=== PATIENT | male | born 1965 | race African-American/Black ===

== ENCOUNTER 2020-11-28 11:43 | Inpatient (IN) | payer OTHER ==
[~2020-11-28] VITALS: Ht 167.6 cm; Wt 58.0 kg
[2020-11-28 12:53] LABS: Basophils # (auto) 0 10 ^3/uL (0-0.2); Basophils % (auto) 0.9 % (0.0-2.0); Eosinophils # (auto) 0.1 10 ^3/uL (0-0.8); Hemoglobin 15.5 g/dL (13.5-17.5); Lymphocytes % (auto) 17.9 % (10.0-50.0); Mean Corpuscular Hgb Conc. 33.6 g/dL (32.0-36.0); Mean Corpuscular Volume 95.1 fL (80.0-100.0); Monocytes # (auto) 0.6 10 ^3/uL (0-1.3); Monocytes % (auto) 10.2 % (0.0-12.0); Neutrophils # (auto) 3.8 10 ^3/uL (1.6-8.6); Red Blood Cells 4.84 10^6/uL (4.5-5.90); Red Cell Distribution Width 12.7 % (11.8-14.3); White Blood Cell 5.5 10^3/uL (4.4-10.8)
[2020-11-28 13:12] LABS: Anion Gap 5 (5-15); Blood Urea Nitrogen 8 mg/dL (7-18); Calcium 8.7 mg/dL (8.5-10.1); Carbon Dioxide 26 mmol/L (21-32); Chloride 109 mmol/L (98-107); Glucose 100 mg/dL (74-106); Potassium 4.6 mmol/L (3.5-5.1); Sodium 140 mmol/L (136-145)
[2020-11-28 13:17] LABS: Alanine Aminotransferase 19 U/L (16-61); Alkaline Phosphatase 64 U/L (45-117); Aspartate Aminotransferase 23 U/L (15-37); Bilirubin, Total 0.7 mg/dL (0.2-1.0); GFR African American 84 mL/min; GFR Non-African American 70 mL/min; Total Protein 7.1 g/dL (6.4-8.2)
[2020-11-28] MEDS ORDERED: ACETAMINOPHEN 325 MG TAB PO ONE (13:45)
[2020-11-28] MEDS ORDERED: cloNIDine HCL 0.1 MG TAB PO ONE (13:45)
[2020-11-28 14:46] LABS: INR 1.12 (0.9-1.15); Partial Thromboplastin Time 29.1 sec (23.0-31.2)
[2020-11-28] MEDS ORDERED: MORPHINE SULF INJ 2 MG/ML SYRINGE 1ML IV PRN ×2 (18:00→19:15)
[2020-11-28] MEDS ORDERED: NITROGLYCERIN 0.4 MG SL TAB SL PRN (18:00)
[2020-11-28] MEDS ORDERED: PROMETHAZINE HCL 25 MG/ML 1ML IV PRN (19:15)
[2020-11-28] MEDS ORDERED: traMADol HCL 50 MG TAB PO PRN (19:15)
[2020-11-28] MEDS ORDERED: LACTULOSE 20Gm/30ML SOLN PO PRN (19:15)
[2020-11-28] MEDS ORDERED: TEMAZEPAM 15 MG CAP PO PRN (19:15)
[2020-11-28] MEDS ORDERED: ACETAMINOPHEN 500 MG TAB PO PRN (19:15)
[2020-11-28] MEDS: SODIUM CHLORIDE 0.9% 1,000 ML IV SCH (20:48)
[2020-11-28 20:53] VITALS: BP 177/104
[2020-11-28] MEDS: cloNIDine HCL 0.1 MG TAB PO PRN (21:06)
[2020-11-28] MEDS ORDERED: GARL400T6 PO (21:15)
[2020-11-28] MEDS ORDERED: ASPI-231 PO (21:15)
[2020-11-28] MEDS ORDERED: CARV3.1240 PO (21:15)
[2020-11-28] MEDS ORDERED: LISI20TA28 PO (21:15)
[2020-11-28 22:00] VITALS: BP 133/85
[2020-11-28] MEDS: ATORVASTATIN 20 MG TAB PO SCH (22:39)
[2020-11-29 05:00] VITALS: BP 169/96
[2020-11-29 05:49] LABS: Cholesterol 188 mg/dL (< 200); HDL Cholesterol 74 mg/dL (40-59); LDL Cholesterol 100 mg/dL (< 100); Triglycerides 71 mg/dL (< 150)
[2020-11-29] MEDS: cloNIDine HCL 0.1 MG TAB PO PRN (06:23)
[2020-11-29 07:57] LABS: Alcohol, Urine < 3.0 mg/dL (0-10); Amphetamine Screen, Urine NEGATIVE (NEGATIVE); Barbiturate Scree,Urine NEGATIVE (NEGATIVE); Benzodiazephine Screen, Urine NEGATIVE (NEGATIVE); Cannabinoid Screen, Urine POSITIVE (NEGATIVE); Cocaine Screen, Urine NEGATIVE (NEGATIVE); Opiate Scree,Urine NEGATIVE (NEGATIVE); Phencyclidine Screen, Urine NEGATIVE (NEGATIVE)
[2020-11-29] MEDS: SODIUM CHLORIDE 0.9% 1,000 ML IV SCH ×2 (08:35→21:54)
[2020-11-29 09:00] VITALS: BP 142/89
[2020-11-29] MEDS: ASPirin 81 mg TAB PO SCH (10:15)
[2020-11-29] MEDS: PANTOPRAZOLE 40 MG TAB PO SCH (10:15)
[2020-11-29] MEDS: ENOXAPARIN SOD 40 MG/0.4 ML SYRINGE SC SCH (10:15)
[2020-11-29] MEDS: ENALAPRIL MALEATE 10 MG TAB PO SCH (10:15)
[2020-11-29] MEDS: NITROGLYCERIN 0.2MG/HR TOPICAL PATCH TD SCH (10:17)
[2020-11-29 17:00] VITALS: BP_SYST 146; BP_DIAS 90; BP_DIAS 92
[2020-11-29] MEDS: ATORVASTATIN 20 MG TAB PO SCH (21:54)
[2020-11-29 22:00] VITALS: BP 144/86
[2020-11-30 05:18] VITALS: BP 141/91
[2020-11-30 08:52] VITALS: BP 140/102
[2020-11-30] MEDS: ASPirin 81 mg TAB PO SCH (09:11)
[2020-11-30] MEDS: NITROGLYCERIN 0.2MG/HR TOPICAL PATCH TD SCH (09:13)
[2020-11-30] MEDS: PANTOPRAZOLE 40 MG TAB PO SCH (09:13)
[2020-11-30] MEDS: ENALAPRIL MALEATE 10 MG TAB PO SCH (09:14)
[2020-11-30] MEDS: ENOXAPARIN SOD 40 MG/0.4 ML SYRINGE SC SCH (09:15)
[2020-11-30] MEDS: SODIUM CHLORIDE 0.9% 1,000 ML IV SCH (11:15)
[2020-11-30] MEDS ORDERED: ADENOSINE 49 MG in GIVE UN-DILUTED 0 ML IV STA (12:57)
[2020-11-30 13:00] VITALS: BP 164/97
[2020-11-30 13:21] VITALS: BP 143/94
[2020-11-30 17:55] VITALS: BP 167/97
== END 2020-11-30 18:30 | disposition home or self-care (01) | DRG 305 ==
LOC: ER 11:43 → TELE 17:50 → TELE-WESTW 20:25
PROVIDERS: ADMIT Internal Medicine; ATTEND Internal Medicine
DX: I16.0 Hypertensive urgency (principal); R00.1 Bradycardia, unspecified; R07.89 Other chest pain; I11.0 Hypertensive heart disease with heart failure; M79.652 Pain in left thigh; I25.10 Atherosclerotic heart disease of native coronary artery without angina pectoris; Z20.822 Contact with and (suspected) exposure to COVID-19; E78.5 Hyperlipidemia, unspecified; F12.90 Cannabis use, unspecified, uncomplicated; J44.9 Chronic obstructive pulmonary disease, unspecified; Z82.49 Family history of ischemic heart disease and other diseases of the circulatory system; Z87.891 Personal history of nicotine dependence; Z91.19 Patient's noncompliance with other medical treatment and regimen; Z95.1 Presence of aortocoronary bypass graft; Z79.82 Long term (current) use of aspirin; Z79.899 Other long term (current) drug therapy; I50.9 Heart failure, unspecified
CPT/HCPCS: 36415; 71045; 78452; 80053; 80061; 80307; 82550; 83735; 83880; 84484; 85025; 85379; 85610; 85652; 85730; 86141; 87426; 93005; 93017; 93971; G0378; J0153

== ENCOUNTER 2020-12-02 11:07 | Emergency (ER) | payer OTHER ==
[~2020-12-02] VITALS: Ht 167.6 cm; Wt 57.6 kg
[~2020-12-02 11:07] MED LIST: ASPI1TAB20 PO; CARV3.1240 PO; GARL400T6 PO; LISI20TA28 PO
[2020-12-02 11:56] LABS: Basophils # (auto) 0.1 10 ^3/uL (0-0.2); Basophils % (auto) 1.5 % (0.0-2.0); Eosinophils # (auto) 0.2 10 ^3/uL (0-0.8); Eosinophils % (auto) 3.2 % (0.0-7.0); Hematocrit 46.4 % (41.0-53.0); Hemoglobin 15.6 g/dL (13.5-17.5); Lymphocytes # (auto) 1.4 10 ^3/uL (0.4-5.4); Lymphocytes % (auto) 22.1 % (10.0-50.0); Mean Corpuscular Hemoglobin 32.1 pg (28.0-32.0); Mean Corpuscular Hgb Conc. 33.7 g/dL (32.0-36.0); Mean Corpuscular Volume 95.2 fL (80.0-100.0); Monocytes # (auto) 0.8 10 ^3/uL (0-1.3); Monocytes % (auto) 12.5 % (0.0-12.0); Neutrophils # (auto) 3.7 10 ^3/uL (1.6-8.6); Neutrophils % (auto) 60.7 % (37.0-80.0); Nucleated Red Blood Cells % 0.1 %; Red Blood Cells 4.87 10^6/uL (4.5-5.90); Red Cell Distribution Width 12.6 % (11.8-14.3); White Blood Cell 6.2 10^3/uL (4.4-10.8)
[2020-12-02 12:15] LABS: Albumin 3.8 g/dL (3.4-5.0); Anion Gap 4 (5-15); Blood Urea Nitrogen 12 mg/dL (7-18); Calcium 8.9 mg/dL (8.5-10.1); Carbon Dioxide 27 mmol/L (21-32); Chloride 109 mmol/L (98-107); Glucose 106 mg/dL (74-106); Magnesium 2.5 mg/dL (1.6-2.6); Potassium 4.4 mmol/L (3.5-5.1); Sodium 140 mmol/L (136-145)
[2020-12-02 12:21] LABS: Alanine Aminotransferase 62 U/L (16-61); Alkaline Phosphatase 60 U/L (45-117); Aspartate Aminotransferase 107 U/L (15-37); BUN/Creatinine Ratio 10.9; Bilirubin, Total 0.8 mg/dL (0.2-1.0); GFR African American 89 mL/min; GFR Non-African American 73 mL/min; Total Protein 6.9 g/dL (6.4-8.2)
[2020-12-02 13:51] VITALS: BP 147/94
== END 2020-12-02 14:42 | disposition home or self-care (01) ==
LOC: ER 11:07
DX: I11.0 Hypertensive heart disease with heart failure (principal); I50.9 Heart failure, unspecified; I25.10 Atherosclerotic heart disease of native coronary artery without angina pectoris; E78.5 Hyperlipidemia, unspecified; Z95.1 Presence of aortocoronary bypass graft; Z87.891 Personal history of nicotine dependence; Z79.82 Long term (current) use of aspirin; Z79.899 Other long term (current) drug therapy
CPT/HCPCS: 36415; 71046; 80053; 83735; 84484; 85025; 93005

== ENCOUNTER → 2021-10-13 | Outpatient (CLI) | payer OTHER | END | disposition home or self-care (01) | LOC: Rad HDHVI 08:58 | PROVIDERS: ATTEND Internal Medicine | DX: I07.1 Rheumatic tricuspid insufficiency (principal); R94.31 Abnormal electrocardiogram [ECG] [EKG]; I10 Essential (primary) hypertension | CPT/HCPCS: 93306 ==